=== PATIENT | female | born 1990 | race Caucasian/White ===

== ENCOUNTER 2020-03-02 14:30 | Inpatient (IN) | payer OTHER ==
[2020-03-02 18:03] VITALS: BMI 29.2
[2020-03-02] MEDS ORDERED: IBUPROFEN 400 MG TABLET (FP) PO PRN (18:09)
[2020-03-02] MEDS ORDERED: ACETAMINOPHEN 325 MG TABLET (FP) PO PRN (18:09)
[2020-03-02] MEDS ORDERED: P-EPHED 60MG/TRIPROLIDI 2.5MG TABLET PO PRN (18:09)
[2020-03-02] MEDS ORDERED: LOPERAMIDE HCL 2 MG CAPSULE PO PRN (18:09)
[2020-03-02] MEDS ORDERED: guaiFENesin 200 MG/10 ML 10 ML UNIT-DOSE CUPS PO PRN (18:09)
[2020-03-02] MEDS ORDERED: NICOTINE POLACRILEX 2 MG GUM BC PRN (18:09)
[2020-03-02] MEDS ORDERED: MAG HYDROX/AL HYDROX/SIMETH 30 ML UNIT-DOSE CUP PO PRN (18:09)
[2020-03-02] MEDS: hydrOXYzine PAMOATE 25 MG CAPSULE (FP) PO PRN (20:15)
[2020-03-02] MEDS: MELATONIN 5 MG TABLETS PO PRN (21:27)
[2020-03-02] MEDS: THIAMINE HCL 100 MG TABLET (FP) PO SCH (21:27)
[2020-03-03] MEDS: hydrOXYzine PAMOATE 25 MG CAPSULE (FP) PO PRN (06:01)
[2020-03-03] MEDS: MAGNESIUM HYDROX 2400MG/30ML ORAL SUSPENSION 30 ML CUP PO PRN (06:01)
[2020-03-03] MEDS ORDERED: BISACODYL 5 MG TABLET.DR (FP) PO ONE (09:31)
[2020-03-03] MEDS: PRENATAL VITAMINS W/ FOLIC ACID TABLET (FP) PO SCH (09:48)
[2020-03-03] MEDS ORDERED: MELATONIN 5 MG TABLETS PO PRN (10:13)
[2020-03-03 11:34] LABS: HEMATOCRIT 38.7 % (32.4-45.2); HEMOGLOBIN 12.8 GM/dL (10.7-15.3); MCHC 32.9 g/dl (32.0-36.0); MEAN CELL VOLUME 100.1 fl (80-96); MEAN PLT VOLUME 9.2 fl (7.5-11.1); PLATELET COUNT 482 K/MM3 (134-434); RBC 3.87 M/mm3 (3.60-5.2); RDW 14.5 % (11.6-15.6); WHITE BLOOD COUNT 8.6 K/mm3 (4.0-10.0)
[2020-03-03 11:38] LABS: POTASSIUM 4.3 mmol/L (3.5-5.1)
[2020-03-03 11:44] LABS: CALCIUM 9.9 mg/dL (8.5-10.1)
[2020-03-03 11:45] LABS: ALBUMIN 3.8 g/dl (3.4-5.0); BLOOD UREA NITROGEN 10.2 mg/dL (7-18)
[2020-03-03 11:48] LABS: CREATININE 0.8 mg/dL (0.55-1.3)
[2020-03-03] MEDS: hydrOXYzine PAMOATE 50 MG CAPSULE (FP) PO PRN ×2 (11:48→18:18)
[2020-03-03 11:49] LABS: TOT PROT 7.6 g/dl (6.4-8.2)
[2020-03-03] MEDS: MAGNESIUM CITRATE 300 ML BOTTLE PO PRN (15:44)
[2020-03-03 20:24] LABS: URINE APPEARANCE CLEAR; URINE BILIRUBIN NEGATIVE (NEGATIVE); URINE COLOR YELLOW; URINE GLUCOSE (UA) NEGATIVE (NEGATIVE); URINE KETONE NEGATIVE (NEGATIVE); URINE LEUK ESTERASE NEGATIVE (NEGATIVE); URINE NITRITE NEGATIVE (NEGATIVE); URINE PROTEIN NEGATIVE (NEGATIVE); URINE UROBILINOGEN 0.2 mg/dL (0.2-1.0)
[2020-03-03] MEDS: THIAMINE HCL 100 MG TABLET (FP) PO SCH (21:17)
[2020-03-03] MEDS: MELATONIN 5 MG TABLETS PO PRN (21:17)
[2020-03-04] MEDS: hydrOXYzine PAMOATE 50 MG CAPSULE (FP) PO PRN ×2 (06:18→10:00)
[2020-03-04] MEDS: PRENATAL VITAMINS W/ FOLIC ACID TABLET (FP) PO SCH (10:00)
[2020-03-04] MEDS: ARTIFICIAL TEARS (POLYVINYL ALCOHOL) OPTH DROPS OU PRN (15:52)
[2020-03-04] MEDS: MELATONIN 5 MG TABLETS PO PRN (21:20)
[2020-03-04] MEDS: THIAMINE HCL 100 MG TABLET (FP) PO SCH (21:20)
[2020-03-05] MEDS: hydrOXYzine PAMOATE 50 MG CAPSULE (FP) PO PRN ×2 (06:20→10:01)
[2020-03-05] MEDS: ARTIFICIAL TEARS (POLYVINYL ALCOHOL) OPTH DROPS OU PRN (10:01)
[2020-03-05] MEDS: PRENATAL VITAMINS W/ FOLIC ACID TABLET (FP) PO SCH (10:01)
[2020-03-05] MEDS: MAGNESIUM CITRATE 300 ML BOTTLE PO PRN (10:03)
[2020-03-05] MEDS: THIAMINE HCL 100 MG TABLET (FP) PO SCH (21:25)
[2020-03-05] MEDS: MELATONIN 5 MG TABLETS PO PRN (21:25)
[2020-03-06] MEDS: hydrOXYzine PAMOATE 50 MG CAPSULE (FP) PO PRN (10:15)
[2020-03-06] MEDS: PRENATAL VITAMINS W/ FOLIC ACID TABLET (FP) PO SCH (10:15)
[2020-03-06] MEDS: ARTIFICIAL TEARS (POLYVINYL ALCOHOL) OPTH DROPS OU PRN (10:17)
[2020-03-06] MEDS: MAGNESIUM HYDROX 2400MG/30ML ORAL SUSPENSION 30 ML CUP PO PRN (10:19)
[2020-03-06] MEDS: THIAMINE HCL 100 MG TABLET (FP) PO SCH (21:12)
[2020-03-06] MEDS: MELATONIN 5 MG TABLETS PO PRN (21:12)
[2020-03-07] MEDS: MAGNESIUM CITRATE 300 ML BOTTLE PO PRN (06:38)
[2020-03-07] MEDS: hydrOXYzine PAMOATE 50 MG CAPSULE (FP) PO PRN ×3 (06:38→21:57)
[2020-03-07] MEDS: ARTIFICIAL TEARS (POLYVINYL ALCOHOL) OPTH DROPS OU PRN ×3 (06:46→21:56)
[2020-03-07] MEDS: PRENATAL VITAMINS W/ FOLIC ACID TABLET (FP) PO SCH (10:12)
[2020-03-07 12:01] LABS: POTASSIUM 4.3 mmol/L (3.5-5.1)
[2020-03-07 12:06] LABS: ALBUMIN 4.4 g/dl (3.4-5.0); BLOOD UREA NITROGEN 11.8 mg/dL (7-18)
[2020-03-07 12:07] LABS: CALCIUM 10.1 mg/dL (8.5-10.1)
[2020-03-07 12:09] LABS: URIC ACID 5.1 mg/dL (2.6-7.2)
[2020-03-07 12:10] LABS: BILIRUBIN,TOTAL 0.7 mg/dL (0.2-1); TOT PROT 8.5 g/dl (6.4-8.2)
[2020-03-07] MEDS: THIAMINE HCL 100 MG TABLET (FP) PO SCH (21:40)
[2020-03-07] MEDS: MELATONIN 5 MG TABLETS PO PRN (21:40)
[2020-03-08] MEDS: hydrOXYzine PAMOATE 50 MG CAPSULE (FP) PO PRN ×3 (05:55→18:54)
[2020-03-08] MEDS: MAGNESIUM HYDROX 2400MG/30ML ORAL SUSPENSION 30 ML CUP PO PRN (07:42)
[2020-03-08] MEDS: PRENATAL VITAMINS W/ FOLIC ACID TABLET (FP) PO SCH (10:27)
[2020-03-08] MEDS: ARTIFICIAL TEARS (POLYVINYL ALCOHOL) OPTH DROPS OU PRN (10:28)
[2020-03-08] MEDS: THIAMINE HCL 100 MG TABLET (FP) PO SCH (21:17)
[2020-03-08] MEDS: MELATONIN 5 MG TABLETS PO PRN (21:17)
[2020-03-09] MEDS: MAGNESIUM HYDROX 2400MG/30ML ORAL SUSPENSION 30 ML CUP PO PRN (06:47)
[2020-03-09] MEDS: hydrOXYzine PAMOATE 50 MG CAPSULE (FP) PO PRN (06:47)
[2020-03-09 07:19] VITALS: BP 112/69; PULSE 66; TEMP 97.9
[2020-03-09] MEDS: ARTIFICIAL TEARS (POLYVINYL ALCOHOL) OPTH DROPS OU PRN (09:43)
[2020-03-09] MEDS: PRENATAL VITAMINS W/ FOLIC ACID TABLET (FP) PO SCH (09:43)
== END 2020-03-09 10:02 | disposition home or self-care (01) | DRG 772 ==
LOC: YASAS 14:30 → Y3W 19:06
PROVIDERS: ADMIT Allergy & Immunology; ATTEND Allergy & Immunology
PROC: HZ42ZZZ Group Counseling for Substance Abuse Treatment, Cognitive-Behavioral (ICD-10-PCS; principal; 2020-03-02)
DX: F10.20 Alcohol dependence, uncomplicated (principal); F10.24 Alcohol dependence with alcohol-induced mood disorder; F10.282 Alcohol dependence with alcohol-induced sleep disorder; F10.280 Alcohol dependence with alcohol-induced anxiety disorder; F32.9 Major depressive disorder, single episode, unspecified; G40.509 Epileptic seizures related to external causes, not intractable, without status epilepticus; H11.33 Conjunctival hemorrhage, bilateral; K59.09 Other constipation; M25.531 Pain in right wrist; Z62.810 Personal history of physical and sexual abuse in childhood; Z91.410 Personal history of adult physical and sexual abuse; Z86.69 Personal history of other diseases of the nervous system and sense organs; Z87.891 Personal history of nicotine dependence; S05.12XD Contusion of eyeball and orbital tissues, left eye, subsequent encounter; S05.11XD Contusion of eyeball and orbital tissues, right eye, subsequent encounter; Y08.89XD Assault by other specified means, subsequent encounter
CPT/HCPCS: 36415; 80053; 81003; 81025; 84550; 85027; 86780; 93005; 93010; C9803; U0003

== ENCOUNTER 2020-09-15 15:39 | Inpatient (IN) | payer OTHER ==
[2020-09-15 18:17] VITALS: BMI 29.0
[2020-09-15] MEDS ORDERED: ONDANSETRON *ODT* 4 MG TABLET SL PRN (19:15)
[2020-09-15] MEDS ORDERED: ACETAMINOPHEN 325 MG TABLET (FP) PO PRN ×2 (19:15)
[2020-09-15] MEDS ORDERED: MAGNESIUM CITRATE 300 ML BOTTLE PO PRN (19:15)
[2020-09-15] MEDS ORDERED: MAG HYDROX/AL HYDROX/SIMETH 30 ML UNIT-DOSE CUP PO PRN (19:15)
[2020-09-15] MEDS ORDERED: diazePAM 5 MG TABLET PO ONE (19:15)
[2020-09-15] MEDS ORDERED: NICOTINE 10 MG CARTRIDGE (INHALER) IH PRN (19:15)
[2020-09-15] MEDS ORDERED: BISMUTH SUBSALICYLATE 524 MG/30 ML PO PRN (19:15)
[2020-09-15] MEDS ORDERED: IBUPROFEN 400 MG TABLET (FP) PO PRN (19:15)
[2020-09-15] MEDS ORDERED: MENTHOL/PHENOL 1 EACH UD MM PRN (19:15)
[2020-09-15] MEDS: THIAMINE HCL 100 MG TABLET (FP) PO SCH (21:21)
[2020-09-15] MEDS: hydrOXYzine PAMOATE 25 MG CAPSULE (FP) PO SCH (21:21)
[2020-09-15] MEDS: diazePAM 5 MG TABLET PO PRN (21:22)
[2020-09-15] MEDS: PRENATAL VITAMINS W/ FOLIC ACID TABLET (FP) PO SCH (21:25)
[2020-09-15] MEDS ORDERED: MELATONIN 5 MG TABLETS PO SCH (22:00)
[2020-09-15] MEDS: diazePAM 5 MG TABLET PO SCH (22:44)
[2020-09-16] MEDS: hydrOXYzine PAMOATE 25 MG CAPSULE (FP) PO SCH (06:20)
[2020-09-16] MEDS: diazePAM 5 MG TABLET PO SCH ×4 (06:21→22:44)
[2020-09-16] MEDS: PRENATAL VITAMINS W/ FOLIC ACID TABLET (FP) PO SCH (10:09)
[2020-09-16 10:56] LABS: HEMATOCRIT 35.2 % (32.4-45.2); HEMOGLOBIN 11.8 GM/dL (10.7-15.3); MCH 28.7 pg (25.7-33.7); MCHC 33.4 g/dl (32.0-36.0); MEAN CELL VOLUME 85.9 fl (80-96); PLATELET COUNT 116 10^3/uL (134-434); RDW 19.7 % (11.6-15.6); WHITE BLOOD COUNT 3.7 K/mm3 (4.0-10.0)
[2020-09-16 11:01] LABS: ALBUMIN 3.9 g/dl (3.4-5.0); BLOOD UREA NITROGEN 10.3 mg/dL (7-18); CALCIUM 8.1 mg/dL (8.5-10.1)
[2020-09-16 11:05] LABS: CREATININE 0.6 mg/dL (0.55-1.3)
[2020-09-16 11:06] LABS: BILIRUBIN,TOTAL 1.8 mg/dL (0.2-1); TOT PROT 7.5 g/dl (6.4-8.2)
[2020-09-16] MEDS: diazePAM 5 MG TABLET PO PRN (22:38)
[2020-09-16] MEDS: METHOCARBAMOL 500 MG TABLET PO PRN (22:38)
[2020-09-16] MEDS: THIAMINE HCL 100 MG TABLET (FP) PO SCH (22:38)
[2020-09-16] MEDS: GABAPENTIN 100 MG CAPSULE PO SCH (22:38)
[2020-09-16] MEDS: traZODone HCL 50 MG TABLET (FP) PO SCH (22:38)
[2020-09-16] MEDS: MAGNESIUM HYDROX 2400MG/30ML ORAL SUSPENSION 30 ML CUP PO PRN (22:46)
[2020-09-17] MEDS: GABAPENTIN 100 MG CAPSULE PO SCH ×3 (05:56→23:04)
[2020-09-17] MEDS: diazePAM 5 MG TABLET PO SCH ×3 (05:56→23:04)
[2020-09-17] MEDS: MAGNESIUM HYDROX 2400MG/30ML ORAL SUSPENSION 30 ML CUP PO PRN (05:59)
[2020-09-17] MEDS: PRENATAL VITAMINS W/ FOLIC ACID TABLET (FP) PO SCH (10:14)
[2020-09-17] MEDS ORDERED: POTASSIUM CHLORIDE TABS 20 MEQ TABLET.ER (FP) PO ONE (11:38)
[2020-09-17] MEDS ORDERED: amLODIPine BESYLATE 10 MG TABLET (FP) PO ONE (11:49)
[2020-09-17] MEDS: hydrOXYzine PAMOATE 25 MG CAPSULE (FP) PO PRN ×2 (17:58→23:06)
[2020-09-17] MEDS: METHOCARBAMOL 500 MG TABLET PO PRN (17:59)
[2020-09-17] MEDS: diazePAM 5 MG TABLET PO PRN (17:59)
[2020-09-17] MEDS: traZODone HCL 50 MG TABLET (FP) PO SCH (23:03)
[2020-09-17] MEDS: THIAMINE HCL 100 MG TABLET (FP) PO SCH (23:04)
[2020-09-18] MEDS: diazePAM 5 MG TABLET PO SCH ×2 (05:55→17:58)
[2020-09-18] MEDS: GABAPENTIN 100 MG CAPSULE PO SCH ×3 (05:56→21:15)
[2020-09-18] MEDS: hydrOXYzine PAMOATE 25 MG CAPSULE (FP) PO PRN ×3 (10:02→22:28)
[2020-09-18] MEDS: PRENATAL VITAMINS W/ FOLIC ACID TABLET (FP) PO SCH (10:02)
[2020-09-18] MEDS: amLODIPine BESYLATE 10 MG TABLET (FP) PO SCH (10:02)
[2020-09-18] MEDS: diazePAM 5 MG TABLET PO PRN (13:56)
[2020-09-18] MEDS ORDERED: cloNIDine HCL 0.1 MG TABLET PO ONE (15:17)
[2020-09-18] MEDS: THIAMINE HCL 100 MG TABLET (FP) PO SCH (21:15)
[2020-09-18] MEDS: traZODone HCL 50 MG TABLET (FP) PO SCH (21:15)
[2020-09-19] MEDS ORDERED: diazePAM 5 MG TABLET PO ONE (06:00)
[2020-09-19] MEDS: GABAPENTIN 100 MG CAPSULE PO SCH (06:41)
[2020-09-19] MEDS: hydrOXYzine PAMOATE 25 MG CAPSULE (FP) PO PRN (06:43)
[2020-09-19] MEDS: PRENATAL VITAMINS W/ FOLIC ACID TABLET (FP) PO SCH (09:28)
[2020-09-19] MEDS: amLODIPine BESYLATE 10 MG TABLET (FP) PO SCH (09:28)
[2020-09-19 09:53] VITALS: BP 126/88; PULSE 85; TEMP 97.1
== END 2020-09-19 09:30 | disposition home or self-care (01) | DRG 775 ==
LOC: YASAS 15:39 → Y3N 19:29
PROVIDERS: ADMIT Allergy & Immunology; ATTEND Allergy & Immunology
PROC: HZ2ZZZZ Detoxification Services for Substance Abuse Treatment (ICD-10-PCS; principal; 2020-09-15)
DX: F10.230 Alcohol dependence with withdrawal, uncomplicated (principal); F10.24 Alcohol dependence with alcohol-induced mood disorder; F41.8 Other specified anxiety disorders; G47.00 Insomnia, unspecified; I10 Essential (primary) hypertension; K21.9 Gastro-esophageal reflux disease without esophagitis; K76.0 Fatty (change of) liver, not elsewhere classified; Z62.810 Personal history of physical and sexual abuse in childhood; Z87.891 Personal history of nicotine dependence; Z86.69 Personal history of other diseases of the nervous system and sense organs; Z91.410 Personal history of adult physical and sexual abuse; Z56.0 Unemployment, unspecified
CPT/HCPCS: 36415; 80053; 81025; 84132; 85027; 86780; C9803; J0735; U0003; U0005

== ENCOUNTER 2021-02-12 09:02 | Inpatient (IN) | payer OTHER ==
[2021-02-12 10:30] VITALS: BMI 25.0
[2021-02-12] MEDS ORDERED: MAGNESIUM CITRATE 300 ML BOTTLE PO PRN (11:06)
[2021-02-12] MEDS ORDERED: MAGNESIUM HYDROX 2400MG/30ML ORAL SUSPENSION 30 ML CUP PO PRN (11:06)
[2021-02-12] MEDS ORDERED: ACETAMINOPHEN 325 MG TABLET (FP) PO PRN ×2 (11:06)
[2021-02-12] MEDS ORDERED: ONDANSETRON *ODT* 4 MG TABLET SL PRN (11:06)
[2021-02-12] MEDS ORDERED: BISMUTH SUBSALICYLATE 262 MG/15 ML BTL PO PRN (11:06)
[2021-02-12] MEDS ORDERED: MENTHOL/PHENOL 1 EACH UD MM PRN (11:06)
[2021-02-12] MEDS ORDERED: IBUPROFEN 400 MG TABLET (FP) PO PRN (11:06)
[2021-02-12] MEDS ORDERED: MAG HYDROX/AL HYDROX/SIMETH 30 ML UNIT-DOSE CUP PO PRN (11:06)
[2021-02-12] MEDS ORDERED: LORazepam 1 MG TABLET PO PRN (11:06)
[2021-02-12] MEDS ORDERED: NICOTINE 10 MG CARTRIDGE (INHALER) IH PRN (11:06)
[2021-02-12] MEDS: LORazepam 2 MG TABLET PO SCH ×3 (12:56→23:07)
[2021-02-12] MEDS: PRENATAL VITAMINS W/ FOLIC ACID TABLET (FP) PO SCH (12:57)
[2021-02-12] MEDS: hydrOXYzine PAMOATE 25 MG CAPSULE (FP) PO SCH ×3 (15:51→23:07)
[2021-02-12] MEDS: METHOCARBAMOL 500 MG TABLET PO PRN (15:51)
[2021-02-12] MEDS: MELATONIN 5 MG TABLETS PO SCH (23:06)
[2021-02-12] MEDS: THIAMINE HCL 100 MG TABLET (FP) PO SCH (23:07)
[2021-02-13] MEDS: LORazepam 2 MG TABLET PO SCH ×4 (06:04→22:22)
[2021-02-13] MEDS: hydrOXYzine PAMOATE 25 MG CAPSULE (FP) PO SCH ×5 (06:04→22:22)
[2021-02-13 09:22] LABS: HEMATOCRIT 31.8 % (32.4-45.2); HEMOGLOBIN 10.3 GM/dL (10.7-15.3); MCH 27.3 pg (25.7-33.7); MCHC 32.3 g/dl (32.0-36.0); MEAN CELL VOLUME 84.6 fl (80-96); MEAN PLT VOLUME 9.1 fl (7.5-11.1); PLATELET COUNT 101 10^3/uL (134-434); RBC 3.76 M/mm3 (3.60-5.2); RDW 19.4 % (11.6-15.6); WHITE BLOOD COUNT 3.7 K/mm3 (4.0-10.0)
[2021-02-13 09:24] LABS: CALCIUM 7.8 mg/dL (8.5-10.1)
[2021-02-13 09:25] LABS: ALBUMIN 3.8 g/dl (3.4-5.0); BLOOD UREA NITROGEN 8.9 mg/dL (7-18)
[2021-02-13 09:28] LABS: CREATININE 0.5 mg/dL (0.55-1.3)
[2021-02-13 09:29] LABS: BILIRUBIN,TOTAL 0.9 mg/dL (0.2-1)
[2021-02-13 09:30] LABS: TOT PROT 6.8 g/dl (6.4-8.2)
[2021-02-13] MEDS: PRENATAL VITAMINS W/ FOLIC ACID TABLET (FP) PO SCH (10:27)
[2021-02-13] MEDS: METHOCARBAMOL 500 MG TABLET PO PRN (10:27)
[2021-02-13] MEDS ORDERED: POTASSIUM CHLORIDE TABS 20 MEQ TABLET.ER (FP) PO ONE ×2 (16:00→21:00)
[2021-02-13] MEDS: MELATONIN 5 MG TABLETS PO SCH (22:22)
[2021-02-13] MEDS: THIAMINE HCL 100 MG TABLET (FP) PO SCH (23:03)
[2021-02-14] MEDS: LORazepam 1 MG TABLET PO SCH ×3 (06:03→17:54)
[2021-02-14] MEDS: hydrOXYzine PAMOATE 25 MG CAPSULE (FP) PO SCH ×4 (06:05→17:54)
[2021-02-14] MEDS: METHOCARBAMOL 500 MG TABLET PO PRN (10:38)
[2021-02-14] MEDS: PRENATAL VITAMINS W/ FOLIC ACID TABLET (FP) PO SCH (10:38)
[2021-02-14 19:32] VITALS: BP 135/82; PULSE 85; TEMP 97.5
[2021-02-15] MEDS ORDERED: LORazepam 0.5 MG TABLET PO PRN
[2021-02-15] MEDS ORDERED: LORazepam 0.5 MG TABLET PO SCH (05:00)
[2021-02-16] MEDS ORDERED: LORazepam 0.5 MG TABLET PO ONE (05:00)
== END 2021-02-14 20:35 | disposition left against medical advice (07) | DRG 770 ==
LOC: YASAS 09:02 → Y6N 15:14
PROVIDERS: ADMIT Allergy & Immunology; ATTEND Allergy & Immunology
PROC: HZ2ZZZZ Detoxification Services for Substance Abuse Treatment (ICD-10-PCS; principal; 2021-02-12)
DX: F10.230 Alcohol dependence with withdrawal, uncomplicated (principal); F12.10 Cannabis abuse, uncomplicated; F17.210 Nicotine dependence, cigarettes, uncomplicated; F41.9 Anxiety disorder, unspecified; F32.A Depression, unspecified; E87.6 Hypokalemia; Z87.19 Personal history of other diseases of the digestive system; Z86.69 Personal history of other diseases of the nervous system and sense organs; Z56.0 Unemployment, unspecified
CPT/HCPCS: 36415; 80053; 81025; 84132; 85027; 86780; C9803-CS; U0003; U0005